=== PATIENT | female | born 1960 | race Caucasian/White ===

== ENCOUNTER 2024-01-02 06:27 | Day surgery (SDC) | payer OTHER ==
[~2024-01-02] VITALS: Ht 154.9 cm; Wt 70.5 kg
[2024-01-02] MEDS ORDERED: LIDOCAINE 2% 11 ML JELLY TP ONE (06:28)
[2024-01-02] MEDS ORDERED: LIDOCAINE 4% 50 ML SOLUTION TP ONE (06:28)
[2024-01-02] MEDS ORDERED: BENZOCAINE 20% 50 MCG/SPRAY 57 GM TP ONE (06:28)
[2024-01-02] MEDS ORDERED: ALBUMIN HUMAN 25%-12.5GM/50ML IV BOTTLE IV ONE (06:28)
[2024-01-02] MEDS ORDERED: REGADENOSON 0.4 MG/5 ML PF SYRINGE IVP ONE (06:28)
[2024-01-02] MEDS ORDERED: SODIUM CHLORIDE 0.9% 1,000 ML ONE (07:03)
[2024-01-02] MEDS ORDERED: MIDAZOLAM HCL 2 MG/2 ML VIAL ONE (07:15)
[2024-01-02] MEDS ORDERED: FentaNYL CITRATE PF 100 MCG/2 ML VIAL ONE (07:16)
[2024-01-02 07:56] LABS: GLUCOMETER DEV NAME(LOC) SDS.; GLUCOSE,POINT OF CARE 118 MG/DL (70-110)
[2024-01-02] MEDS: SODIUM CHLORIDE 0.9% 1,000 ML IV ONE (08:00)
[2024-01-02] MEDS ORDERED: ASPI-1450 PO (08:20)
[2024-01-02] MEDS ORDERED: AZEL137S8 NASAL (08:20)
[2024-01-02] MEDS ORDERED: GLYB-145 PO (08:20)
[2024-01-02] MEDS ORDERED: MONT-35 PO (08:20)
[2024-01-02] MEDS ORDERED: DICL100G60 TP (08:20)
[2024-01-02] MEDS ORDERED: FLUT12AE3 IH (08:20)
[2024-01-02] MEDS ORDERED: FAMO20 PO (08:20)
[2024-01-02] MEDS ORDERED: LEVO50 PO (08:20)
[2024-01-02] MEDS ORDERED: CHOL200059 PO (08:20)
[2024-01-02] MEDS ORDERED: GABA-1181 PO (08:20)
[2024-01-02] MEDS ORDERED: ALBU18HF12 IH (08:20)
[2024-01-02] MEDS ORDERED: PRAV20TA4 PO (08:21)
[2024-01-02 08:35] VITALS: PULSE 106; RESP 24; O2SAT 99
[2024-01-02] MEDS ORDERED: MethylPREDNISolone SOD SUCC 125 MG/2 ML VIAL ONE (08:42)
[2024-01-02] MEDS ORDERED: MethylPREDNISolone SOD SUCC 125 MG/2 ML VIAL IVP ONE (09:00)
[2024-01-02] MEDS ORDERED: MethylPREDNISolone SOD SUCC 40 MG/ML VIAL ONE (09:14)
[2024-01-02] MEDS: MethylPREDNISolone SOD SUCC 40 MG/ML VIAL IVP ONE (09:19)
[2024-01-02 11:45] LABS: GLUCOMETER DEV NAME(LOC) SDS.; GLUCOSE,POINT OF CARE 157 MG/DL (70-110)
== END 2024-01-02 11:30 | disposition home or self-care (01) ==
LOC: SURGERY 06:27
PROVIDERS: ATTEND Internal Medicine Critical Care Medicine
DX: R05.3 Chronic cough (principal); R06.2 Wheezing; J38.4 Edema of larynx; B37.0 Candidal stomatitis; R91.8 Other nonspecific abnormal finding of lung field; J98.09 Other diseases of bronchus, not elsewhere classified; J98.8 Other specified respiratory disorders; J84.10 Pulmonary fibrosis, unspecified; M47.814 Spondylosis without myelopathy or radiculopathy, thoracic region; E11.9 Type 2 diabetes mellitus without complications; K46.9 Unspecified abdominal hernia without obstruction or gangrene; E78.00 Pure hypercholesterolemia, unspecified; M17.9 Osteoarthritis of knee, unspecified; Z79.82 Long term (current) use of aspirin; Z79.899 Other long term (current) drug therapy
CPT/HCPCS: 31623; 82962; 87206; 87101; 87220; 87070; 88108; 31624; 71045; 87015; J3010; J2250; J2919; Q9967; J7030; J2785; P9047; Z7610